=== PATIENT | female | born 1985 | race American Indian/Alaskan Native ===

== ENCOUNTER 2017-03-03 06:24 | Emergency (ER) | payer SELFPAY ==
[2017-03-03 06:59] VITALS: BP 126/90
[2017-03-03 07:36] LABS: Bacteria,Urine 1+ /HPF (Negative); Bilirubin,Urine NEG (Negative); Blood,Urine SM (Negative); Ketones,Urine NEG (Negative); Leukocyte Esterase,Urine LG (Negative); Mucus,Urine FEW /HPF; Nitrite,Urine NEG (Negative); Urobilinogen,Urine < 2.0 mg/dL (<2.0)
[2017-03-03 07:38] LABS: WBC,Urine > 182.0 /HPF (0.0-6.0)
[2017-03-03] MEDS ORDERED: XYLOCAINE 1% MPF 5 mL INFILTRATI ONE (08:48)
[2017-03-03] MEDS ORDERED: ROCEPHIN IM ONE (08:48)
--- NOTE | 2017-03-03 08:52 | Emergency Department Report ---
ED Female HPI - General Chief complaint: Urogenital-Female Stated complaint: BACKPAIN/EMESIS/FREQUENT URINATION Time Seen by Provider: 03/03/17 07:58 Source: patient Mode of arrival: Ambulatory Limitations: No Limitations - History of Present Illness Initial comments: 31-year-old female that presents with frequent urination and dysuria for the past week and a half. Patient states she feels pulling during urination. Since yesterday to an morning patient started to feel severe back pain primarily left side. Patient denies any new sexual partner. Denies any head trauma. Patient does not seem toxic or ill appearance. No signs of distress noted. Patient denies any discharge, odor, hematuria, abdominal pain, numbness or tingling, chest pain, shortness of breath. Patient states she is not sexually active and is not concerned of any sexual transmitted diseases. Patient states her pain is a 4 out of a 10. Patient describes pain as aching and burning sensation. Patient denies any pelvic pain. MD Complaint: dysuria -: Gradual (1.5 weeks) Radiation: non-radiating Severity: mild Severity scale (0 -10): 4 Quality: aching Consistency: constant Improves with: none Worsens with: urination Associated Symptoms: denies other symptoms. denies: vaginal discharge, vaginal bleeding, abdominal pain, nausea/vomiting, fever/chills, headaches, loss of appetite, dysuria, hematuria, rash, seizure, shortness of breath, syncope, weakness - Related Data Sexually active: No (as per patient) Previous Rx's Medication Instructions Recorded Last Taken Type Methimazole 10 mg PO QDAY #30 tablet 09/15/16 Unknown Rx Levofloxacin [Levaquin TAB] 750 mg PO QDAY #7 tablet 03/03/17 Unknown Rx Allergies Allergy/AdvReac Type Severity Reaction Status Date / Time aspirin Allergy Angioedema Verified 10/25/16 14:03 flurbiprofen [From Ansaid] Allergy Angioedema Verified 07/11/16 21:22 ibuprofen Allergy Angioedema Verified 10/25/16 14:03 peanut Allergy Itching Verified 07/11/16 21:22 ED Review of Systems ROS: Stated complaint: BACKPAIN/EMESIS/FREQUENT URINATION Other details as noted in HPI Constitutional: denies: chills, fever Eyes: denies: eye pain, eye discharge, vision change ENT: denies: ear pain, throat pain Respiratory: denies: cough, shortness of breath, wheezing Cardiovascular: denies: chest pain, palpitations Endocrine: no symptoms reported Gastrointestinal: denies: abdominal pain, nausea, diarrhea Genitourinary: urgency, dysuria, frequency. denies: hematuria, discharge, abnormal menses, dyspareunia Musculoskeletal: denies: back pain, joint swelling, arthralgia Skin: denies: rash, lesions Neurological: denies: headache, weakness, paresthesias Psychiatric: denies: anxiety, depression Hematological/Lymphatic: denies: easy bleeding, easy bruising ED Past Medical Hx - Past Medical History Previous Medical History?: Yes Hx Asthma: Yes (childhood asthma) Additional medical history: Graves Disease - Surgical History Past Surgical History?: Yes Additional Surgical History: - Social History Smoking Status: Current Some Day Smoker Substance Use Type: None - Medications Home Medications: Home Medications Medication Instructions Recorded Confirmed Last Taken Type Methimazole 10 mg PO QDAY #30 tablet 09/15/16 10/26/16 Unknown Rx Levofloxacin [Levaquin TAB] 750 mg PO QDAY #7 tablet 03/03/17 Unknown Rx ED Physical Exam - General Limitations: No Limitations General appearance: alert, in no apparent distress - Head Head exam: Present: atraumatic, normocephalic - Eye Eye exam: Present: normal appearance - ENT ENT exam: Present: mucous membranes moist - Neck Neck exam: Present: normal inspection - Respiratory Respiratory exam: Present: normal lung sounds bilaterally. Absent: respiratory distress - Cardiovascular Cardiovascular Exam: Present: regular rate, normal rhythm. Absent: systolic murmur, diastolic murmur, rubs, gallop - GI/Abdominal GI/Abdominal exam: Present: soft, normal bowel sounds. Absent: distended, tenderness, guarding, rebound - Extremities Exam Extremities exam: Present: normal inspection, normal capillary refill. Absent: full ROM, tenderness - Back Exam Back exam: Present: normal inspection, full ROM, CVA tenderness (L). Absent: tenderness, CVA tenderness (R) - Neurological Exam Neurological exam: Present: alert, oriented X3, CN II-XII intact, normal gait - Psychiatric Psychiatric exam: Present: normal affect, normal mood - Skin Skin exam: Present: warm, dry, intact, normal color. Absent: rash ED Course Vital Signs 03/03/17 06:56 Temperature 98.4 F Pulse Rate 113 H Respiratory 18 Rate Blood Pressure 126/90 O2 Sat by Pulse 100 Oximetry Patient stated has Graves' disease and is usually tachycardic at 120ish - Reevaluation(s) Reevaluation #1: 03/03/17 09:24 Patient stated no signs of distress of the getting the Rocephin IM. ED Medical Decision Making - Medical Decision Making Ed course: This is a 31-year-old female that presents with UTI symptoms and pyelonephritis 1- Dr. Gardiner is aware of the patient in symptoms. Stated No ct scan needed. 2- IM Rocephin administered in the ER. Patient tolerated while no signs of any distress. 3- I instructed the Patient if you have these symptoms to report to primary care Dr. or emergency room. 4- at the time of discharge the patient still does not seem toxic or ill appearance. No signs and distress noted. 5- patient agrees to discharge plan. No further questions noted at this time. 6- I instructed the patient to take antibiotic course as prescribed. 7- UA results: WBC 182.0, RBC 20.0 Bacteria 1+. Negative HCG. Critical care attestation.: If time is entered above; I have spent that time in minutes in the direct care of this critically ill patient, excluding procedure time. ED Disposition Clinical Impression: Polyneuritis UTI (urinary tract infection) Qualifiers: Urinary tract infection type: acute pyelonephritis Qualified Code(s): N10 - Acute pyelonephritis Disposition: DISCHARGED TO HOME OR SELFCARE Is pt being admited?: No Does the pt Need Aspirin: No Condition: Stable Instructions: Urinary Tract Infection in Women (ED) Additional Instructions: Follow-up with your primary care doctor in 3-5 days. If symptoms worsen or change. Report back to emergency room. Take medication as prescribed. Prescriptions: Levofloxacin [Levaquin TAB] 750 mg PO QDAY #7 tablet Referrals: PRIMARY CARE, [Primary Care Provider] - 3-5 Days [facility] [Outside] - 3-5 Days [facility] [Outside] - 3-5 Days Forms: Work/School Release Form(ED)
== END 2017-03-03 09:06 | disposition home or self-care (01) ==
LOC: ED 06:24
DX: G62.9 Polyneuropathy, unspecified (principal); N10 Acute pyelonephritis; J45.909 Unspecified asthma, uncomplicated; F17.200 Nicotine dependence, unspecified, uncomplicated; Z91.010 Allergy to peanuts; Z88.6 Allergy status to analgesic agent
CPT/HCPCS: 81001; 81025; 96372; 99282; J0696

== ENCOUNTER 2017-04-12 17:08 | Emergency (ER) | payer SELFPAY ==
[2017-04-12 23:49] VITALS: BP 138/81
--- NOTE | 2017-04-13 02:10 | Emergency Department Report ---
ED Rash HPI - HPI Chief Complaint: Extremity Injury, Upper Stated Complaint: RASH/SHLDR PAIN Time Seen by Provider: 04/12/17 23:46 Duration: 3 Days Location: Chest (upper right chest) Suspected Cause: Unknown Rash Symptoms: No Itching, No Facial Swelling, No Tongue/Oral Swelling, No Breathing Difficulties, No Choking Sensation, No Wheezing/Dyspnea, No Peeling, No Blistering, No Fever, No Lightheaded, No Malaise, No Myalgias Severity: mild Other History: This is a 31-year-old female well-nourished with nontoxic or ill in appearance that presents with 3 cm x 3 cm circular tender rash that has developed 3 days ago. Patient denies any fever, chills, pus, drainage, joint swelling, joint redness, numbness, tingling, chest pain, shortness of breath, abdominal pain. Patient stated has been diagnosed with strep throat 2 weeks ago and has been prescribed amoxicillin which she finished a course last week. Patient states she has a history of Graves' disease which she takes Methimazole 10 mg daily but denies taking it for 4 days due to ran out of medication. Patient stated has a prescription for Methimazole but had no time to fill it. ED Review of Systems ROS: Stated complaint: RASH/SHLDR PAIN Other details as noted in HPI Constitutional: denies: chills, fever Eyes: denies: eye pain, eye discharge, vision change ENT: denies: ear pain, throat pain Respiratory: denies: cough, shortness of breath, wheezing Cardiovascular: denies: chest pain, palpitations Endocrine: no symptoms reported Gastrointestinal: denies: abdominal pain, nausea, diarrhea Genitourinary: denies: urgency, dysuria, discharge Musculoskeletal: denies: back pain, joint swelling, arthralgia Skin: rash (3 cm by 3 cm raised circular tender rash to her right upper chest). denies: lesions Neurological: denies: headache, weakness, paresthesias Psychiatric: denies: anxiety, depression Hematological/Lymphatic: denies: easy bleeding, easy bruising ED Past Medical Hx - Past Medical History Previous Medical History?: Yes Hx Asthma: Yes (childhood asthma) Additional medical history: Graves Disease - Surgical History Past Surgical History?: Yes Additional Surgical History: - Social History Smoking Status: Never Smoker Substance Use Type: None - Medications Home Medications: Home Medications Medication Instructions Recorded Confirmed Last Taken Type Methimazole 10 mg PO QDAY #30 tablet 09/15/16 10/26/16 Unknown Rx Levofloxacin [Levaquin TAB] 750 mg PO QDAY #7 tablet 03/03/17 Unknown Rx Acetaminophen [Acetaminophen TAB] 650 mg PO Q6HR PRN #15 tablet 04/13/17 Unknown Rx Rash Exam - Exam General: Vital signs noted. No distress. Alert and acting appropriately. GENERAL: The patient is a well-developed, well-nourished female in no apparent distress. Patient is alert and acting appropriately for age. HEENT: Head is normocephalic and atraumatic. PERRL, Extraocular muscles are intact. Pupils are equal, round, and reactive to light and accommodation. Nares appeared normal. Mouth is well hydrated and without lesions. Mucous membranes are moist. Posterior pharynx clear of any exudate or lesions. NECK: Supple. No carotid bruits. No lymphadenopathy or thyromegaly.nontender. No meningitic signs are noted. LUNGS: Clear to auscultation. Non labor breathing. No intercostal retractions. HEART: Regular rate and rhythm without murmur, rubs or gallops. No reproducible ABDOMEN: Soft, nontender, and nondistended. Positive bowel sounds. No hepatosplenomegaly was noted. No guarding or rebound tenderness, negative epigastric bruit. Negative psoas sign, negative santana sign, negative McBurneys sign EXTREMITIES: Without any cyanosis, clubbing, rash, lesions or edema. Peripheral pulses intact. Capillary refill less than 2 seconds. NEUROLOGIC: Cranial nerves II through XII are grossly intact. Alert and oriented x 3. Normal gait. Symmetrical strength and sensation. Reflexes 2+ throughout. Cerebellar testing normal. GCS score of 15. PSYCHIATRIC: Normal affect with no suicidal or homicidal ideations. Skin: 3 cm by 3 cm raised erythema circular tender rash to her right upper chest HEENT: No Periorbital Edema, No Conjuctival Injection, No Chemosis, No Perioral Edema, No Tongue Edema, No Uvular Edema, No Compromised Airway, No Drooling Lungs: Yes Good Air Exchange (Normal Breath Sounds), No Wheezes, No Ronchi, No Stridor, No Cough, No Labored Respirations, No Retractions, No Use of Accessory Muscles, No Other Abnormal Lung Sounds Heart: Yes Regular, No Murmur Skin: Yes Tenderness, Yes Erythema, Yes Other (3 cm by 3 cm raised erythema circular tender rash to her right upper chest), No Urticarial Rash, No Maculopapular Rash, No Morbilliform rash, No Bulla(e), No Excoriations, No Weeping, No Edema, No Encrustations Other: Positive: Abdomen Normal, Neurologic Normal, Musculoskeletal Normal ED Course Vital Signs 04/12/17 04/12/17 18:18 23:35 Temperature 98.5 F 99.7 F H Pulse Rate 117 H 116 H Respiratory 18 22 Rate Blood Pressure 148/98 Blood Pressure 138/81 [Right] O2 Sat by Pulse 99 97 Oximetry - Reevaluation(s) Reevaluation #1: 04/13/17 02:33 Patient was given Methimazole 10 mg in the ED. Reevaluation #2: 04/13/17 02:33 Patient stated her heart rate is always at 110-125 due to her Graves' disease. - Consultations Consultation #1: 04/13/17 02:32 Dr. Bueno has been consulted about patient and agrees to the d/c plan of care. ED Medical Decision Making - Medical Decision Making ED course: This is a 31-year-old female that presents with 3 cm by 3 cm raised circular tender rash to her right upper chest 1- after my physical exam, my suspicion patient has similar symptoms to erythema nodosum 2- Patient stated has a prescription for Methimazole but did not have time to fill it yet. patient was instructed to fill her prescription Methimazole 10mg as soon as possible. 3- patient received Methimazole 10mg in the ED. 4- patient stated that her heart rate usually at 110-125 normally due to her graves disease. 5- patient was instructed to follow-up with her primary care doctor in 3-5 days or if symptoms worsen before by this emergency room as well as possible. 6- at time time of discharge, the patient does not seem toxic or ill in appearance. No acute signs of distress noted. Patient agrees to discharge treatment plan of care. No further questions noted by the patient. 7-patient was instructed to take acetaminophen as needed for pain and to use warm compresses to area. Critical care attestation.: If time is entered above; I have spent that time in minutes in the direct care of this critically ill patient, excluding procedure time. ED Disposition Clinical Impression: Rash Disposition: DISCHARGED TO HOME OR SELFCARE Is pt being admited?: No Does the pt Need Aspirin: No Condition: Stable Instructions: Ibuprofen (By mouth), Acute Rash (ED) Additional Instructions: Please fill your Methimazole prescription as soon as possible. Please follow-up with your primary care doctor in 3-5 days or if symptoms worsen report back to the emergency room as well as possible. Take acetaminophen as prescribed as needed and use warm compresses to the area. Prescriptions: Acetaminophen [Acetaminophen TAB] 650 mg PO Q6HR PRN #15 tablet PRN Reason: Pain Referrals: PRIMARY CAREMD [Primary Care Provider] - 3-5 Days [facility] [Outside] - 3-[address] [facility] [Outside] - 3-5 Days MORRIS DOSS MD [Staff Physician] - 3-5 Days Forms: Work/School Release Form(ED)
[2017-04-13] MEDS ORDERED: TAPAZOLE PO ONE (02:57)
[2017-04-13] MEDS ORDERED: TAPAZOLE PO SCH (10:00)
== END 2017-04-13 02:45 | disposition home or self-care (01) ==
LOC: ED 17:08
DX: R21 Rash and other nonspecific skin eruption (principal); J45.909 Unspecified asthma, uncomplicated
CPT/HCPCS: 99282